=== PATIENT | female | born 1945 | race Caucasian/White ===

== ENCOUNTER 2021-06-11 15:44 | Inpatient (IN) | payer MEDICARE, OTHER ==
[~2021-06-11] VITALS: Ht 160 cm; Wt 59.0 kg
[2021-06-11] MEDS ORDERED: LORAZEPAM 2 MG/1 ML VIAL IM ONE ×2 (16:00→16:45)
[2021-06-11] MEDS ORDERED: ZIPRASIDONE MESYLATE 20 MG VIAL IM ONE ×2 (16:00→16:05)
--- NOTE | 2021-06-11 16:00 | NUR ---
MD at bedside for assessment, no sitter available at this time per housekeeping room attendant, Security called for assistance
[2021-06-11] MEDS ORDERED: LORAZEPAM 2 MG/1 ML VIAL ONE ×2 (16:05→17:00)
[2021-06-11] MEDS ORDERED: QUET100T PO (16:07)
[2021-06-11] MEDS ORDERED: MAGN400O6 PO (16:07)
[2021-06-11] MEDS ORDERED: QUET25TA PO (16:07)
[2021-06-11] MEDS ORDERED: DIVA125T2 PO (16:07)
[2021-06-11] MEDS ORDERED: ATOR10TA PO (16:07)
[2021-06-11] MEDS ORDERED: INSU100V39 SQ ×2 (16:07)
[2021-06-11] MEDS ORDERED: NA P133E RC (16:07)
[2021-06-11] MEDS ORDERED: INSU100V7 SQ (16:07)
[2021-06-11] MEDS ORDERED: ACET-2154 PO (16:07)
--- NOTE | 2021-06-11 17:00 | NUR ---
Patient taken to radiology twice and unsuccessful to get CT of the head, patient refused to lay on [facility]
--- NOTE | 2021-06-11 17:21 | NUR ---
Unable to get EKG at this time, patient continues to wander
[2021-06-11] MEDS ORDERED: diphenhydrAMINE 50 MG/1 ML VIAL IM ONE (17:45)
[2021-06-11] MEDS ORDERED: diphenhydrAMINE 50 MG/1 ML VIAL ONE (17:45)
[2021-06-11] MEDS ORDERED: HALOPERIDOL LACTATE 5 MG/1 ML VIAL IM ONE (17:45)
[2021-06-11] MEDS ORDERED: HALOPERIDOL LACTATE 5 MG/1 ML VIAL ONE (17:45)
[2021-06-11 18:36] LABS: HEMATOCRIT 33.9 % (31.2-41.9); MEAN CORPUSCULAR VOLUME 95.5 fL (75.5-95.3); PLATELET COUNT (AUTO) 282 K/uL (179-408)
[2021-06-11 18:40] LABS: CARBON DIOXIDE 26 mmol/L (21-32); CHLORIDE 101 mmol/L (98-107); CREATININE 0.7 mg/dL (0.6-1.3); GLUCOSE 283 mg/dL (74-106); POTASSIUM 3.6 mmol/L (3.5-5.1); UREA NITROGEN, BLOOD 16 mg/dL (7-18)
[2021-06-11 18:44] LABS: ETHANOL < 3 MG/DL (0-0)
[2021-06-11 18:46] LABS: ACETAMINOPHEN < 2.0 ug/mL (10-30); ALANINE AMINOTRANSFERASE 33 U/L (14-59); ALKALINE PHOSPHATASE 86 U/L (50-136); ASPARTATE AMINOTRANSFERASE 8 U/L (15-37); BILIRUBIN,TOTAL 0.2 mg/dL (0.2-1.0)
[2021-06-11] MEDS ORDERED: KETAMINE HCL 500 MG/10 ML INJ IV ONE (19:00)
--- NOTE | 2021-06-11 19:05 | NUR ---
RECEIVED REPORT FROM REGINALDO [facility]LAND. PT NOTED TO BE IN BED, VITALS STABLE.
[2021-06-11] MEDS ORDERED: KETAMINE HCL 500 MG/10 ML INJ ONE (19:19)
--- NOTE | 2021-06-11 19:31 | NUR ---
PT TAKEN DOWN FOR CT.
--- NOTE | 2021-06-11 19:43 | NUR ---
PT RETURNED FROM CT.
--- NOTE | 2021-06-11 19:58 | NUR ---
CALLED CRISIS TEAM, SPOKE WITH ANTIONETTE, "OK I'M ON MY WAY".
[2021-06-11 20:11] LABS: *BILIRUBIN,URIN NEGATIVE (NEGATIVE); *BLOOD, URINE NEGATIVE (NEGATIVE); *CLARITY,URINE CLEAR (CLEAR); *COLOR,URINE YELLOW (YELLOW); *KETONES,URINE NEGATIVE (NEGATIVE); LEUKOCYTE ESTERASE ,URINE NEGATIVE (NEGATIVE); NITRITE, URINE NEGATIVE (NEGATIVE); PH,URINE 7.5 (5.0-8.0); UGLUCOSE 2+ (NEGATIVE)
[2021-06-11 20:20] LABS: *AMPHETAMINE, URINE NEGATIVE (NEGATIVE); *CANNABINOID, URINE NEGATIVE (NEGATIVE); *COCCAINE, URINE NEGATIVE (NEGATIVE); *OPIATE, URINE NEGATIVE (NEGATIVE); *PHENCYCLIDINE SCREEN,URINE NEGATIVE (NEGATIVE)
--- NOTE | 2021-06-11 21:35 | NUR ---
GAVE REPORT TO ANDIE IN [facility].
--- NOTE | 2021-06-11 21:50 | NUR ---
Pt. admitted to MHU room 138 A , under care of Dr. Mercado and Ayala Hill. Dx: psychosis 5150 hold for GD and GTO. Belongs List completed
[2021-06-11] MEDS ORDERED: LORAZEPAM 0.5 MG TABLET PO PRN (22:00)
[2021-06-11] MEDS ORDERED: MAGNESIUM HYDROXIDE 30 ML LIQUID UDC PO PRN (22:00)
[2021-06-11] MEDS ORDERED: ACETAMINOPHEN 650 MG SUPP.RECT RC PRN (22:00)
[2021-06-11] MEDS ORDERED: MAG HYDROX/AL HYDROX/SIMETH 30 ML LIQUID UDC PO PRN (22:00)
[2021-06-11] MEDS: BLOOD SUGAR DIAGNOSTIC 1 EACH STRIP VI ONE (22:15)
[2021-06-12 01:47] VITALS: BP 136/73
[2021-06-12] MEDS: BLOOD SUGAR DIAGNOSTIC 1 EACH STRIP VI ONE (01:53)
[2021-06-12] MEDS ORDERED: MAGNESIUM HYDROXIDE 30 ML LIQUID UDC PO PRN (02:15)
[2021-06-12] MEDS ORDERED: DEXTROSE 50% 50 ML DISP.SYRIN IV PRN (02:15)
[2021-06-12] MEDS ORDERED: ACETAMINOPHEN 325 MG TABLET-SA PATIENTS-PAIN ONLY PO PRN (02:15)
[2021-06-12] MEDS: INSULIN REGULAR, HUMAN 300 UNITS/3 ML VIAL SQ PRN ×2 (02:16→16:43)
--- NOTE | 2021-06-12 05:26 | NUR ---
ADMISSION NOTE; Received at 2215, from the ER, on a 72 hour hold, for danger to self/ gravely disabled, a transfer from [facility]. According to the hold, she has been increasingly aggressive for the past 3 days, unable to be redirected, has been impulsive and unpredictable, attempting to kick and bite staff, when they attempted to administer insulin. Upon arrival, she was confused and disoriented. Unable to provide information, or sign documents. She is diabetic, and initially refused to have her blood sugar checked. she attempted to climb out of bed, and was restless and difficult to redirect. She was placed in the ninfa chair for safety, and situated at the nurses station, for closer monitoring. Eventually, she got tired, and was assisted back to bed. A blood sugar check was finally able to be performed at 0153, and it was 348 (it was 283 in the ER at 1820, when a blood chemistry was drawn). [facility] was paged, and orders were received. Sliding scale insulin was given, and she went back to sleep. she continues to sleep, but is easy to awaken. No signs of hypo/hyper glycemia is noted. AM blood sugar check will be performed later, per orders. No distress noted. Will continue to monitor closely.
[2021-06-12] MEDS: BLOOD SUGAR DIAGNOSTIC 1 EACH STRIP VI SCH ×3 (06:26→16:38)
--- NOTE | 2021-06-12 06:56 | NUR ---
slept 5 hours total. AM blood sugar is 134. continues to sleep.
[2021-06-12 07:36] VITALS: BP 113/75
[2021-06-12 07:51] LABS: CREATININE 0.7 mg/dL (0.6-1.3); POTASSIUM 3.5 mmol/L (3.5-5.1)
[2021-06-12] MEDS: INSULIN LISPRO 1000 UNITS/10 ML VIAL(HUMALOG) SQ SCH ×3 (08:43→16:44)
[2021-06-12] MEDS: INSULIN REGULAR, HUMAN 300 UNIT/3 ML VIAL SQ PRN ×3 (08:47→20:32)
--- NOTE | 2021-06-12 09:15 | NUR ---
GPS: PT RECEIVED ON CHLOÉ CHAIR FOR SAFETY. PT ALMOST FINISHED THE BREAKFAST. PT WENT BACK TO BED AND WAS GIVEN 10 UNITS HUMALOG AND 2 UNITS HUMALIN R SQ. PT TOLERATED WELL. NO AGITATION AT THIS TIME.
--- NOTE | 2021-06-12 10:30 | NUR ---
GPS: PT ANXIOUS WITH AGITATION, SEATED ON CHLOÉ CHAIR. PT STATED WILL GO TO A [employer] AND WILL BE LATE. PT TALKING TO HERSELF. GIVEN ATIVAN AND TOLERATED WELL. WILL MONITOR
[2021-06-12] MEDS: DIVALPROEX SPRINKLE 125 MG CAP.SPRINK PO SCH ×2 (12:22→16:40)
[2021-06-12] MEDS: QUETIAPINE FUMARATE 25 MG TABLET PO SCH ×2 (12:22→16:40)
[2021-06-12] MEDS: LORAZEPAM 1 MG TABLET PO PRN ×2 (13:18→20:27)
--- NOTE | 2021-06-12 15:44 | NUR ---
GPS: PT CHRISTINE MANE CALLED CHECKING ON PT. BOYFRIENFabián MENTIONED HE WILL CALL BACK ON MONDAY FOR UPDATE. HE KNEW WHAT HAPPENED TO THE PT WHY SHE WAS ADMITTED HERE.
[2021-06-12 16:06] VITALS: BP 111/62
[2021-06-12 20:03] VITALS: BP 112/72
[2021-06-12] MEDS: ATORVASTATIN 10 MG TABLET PO SCH (20:27)
[2021-06-12] MEDS: QUETIAPINE FUMARATE 100 MG TABLET PO SCH (20:28)
[2021-06-12] MEDS: INSULIN GLARGINE,HUM 300 UNITS/3 ML CARTRIDGE SQ SCH (20:31)
[2021-06-13] MEDS: BLOOD SUGAR DIAGNOSTIC 1 EACH STRIP VI SCH ×5 (00:38→20:18)
[2021-06-13 07:57] VITALS: BP 110/79
[2021-06-13] MEDS: DIVALPROEX SPRINKLE 125 MG CAP.SPRINK PO SCH ×3 (08:01→17:00)
[2021-06-13] MEDS: QUETIAPINE FUMARATE 25 MG TABLET PO SCH ×3 (08:01→17:00)
[2021-06-13] MEDS: LORAZEPAM 1 MG TABLET PO PRN ×2 (08:01→17:00)
[2021-06-13] MEDS: INSULIN LISPRO 1000 UNITS/10 ML VIAL(HUMALOG) SQ SCH ×3 (08:06→16:41)
[2021-06-13] MEDS: INSULIN REGULAR, HUMAN 300 UNIT/3 ML VIAL SQ PRN ×2 (08:13→16:42)
[2021-06-13 16:39] VITALS: BP 122/70
--- NOTE | 2021-06-13 16:42 | NUR ---
received patient in ninfa-chair ,compliant with all medication ,assisted with all ADLS.will continue close monitoring for safety.
[2021-06-13 20:04] VITALS: BP 122/63
[2021-06-13] MEDS: ATORVASTATIN 10 MG TABLET PO SCH (20:17)
[2021-06-13] MEDS: QUETIAPINE FUMARATE 100 MG TABLET PO SCH (20:17)
[2021-06-13] MEDS: INSULIN GLARGINE,HUM 300 UNITS/3 ML CARTRIDGE SQ SCH (20:20)
[2021-06-13] MEDS: ZOLPIDEM 5 MG TABLET PO PRN (21:53)
--- NOTE | 2021-06-13 22:29 | NUR ---
Received patient in the hallway sitting in a jeffery chair near the nursing station. she is noted A/O x 1, restless easily irritable and poor historian. patient needs assistance with ADLs, she is unable to performed complex tasks. she was taken to the bathroom and she was able to void. she is hard to redirect and she requires redirections and reality checks. she is compliant with medication regiment. V/S stable at this time. she was given PO fluids and snacks. she is reassured for her safety. safety and fall precaution are in place. will continue to monitor.
[2021-06-14] MEDS: LORAZEPAM 1 MG TABLET PO PRN ×2 (06:14→14:28)
[2021-06-14] MEDS: BLOOD SUGAR DIAGNOSTIC 1 EACH STRIP VI SCH ×4 (06:32→20:51)
--- NOTE | 2021-06-14 06:46 | NUR ---
patient slept for approx 5.30 hrs through the night. She was noted anxious and restless. Ativan 1mg PO PRN was given. she is now observed calm and cooperative.
[2021-06-14 07:40] VITALS: BP 131/77
[2021-06-14] MEDS: QUETIAPINE FUMARATE 25 MG TABLET PO SCH ×3 (08:26→16:33)
[2021-06-14] MEDS: DIVALPROEX SPRINKLE 125 MG CAP.SPRINK PO SCH ×3 (08:26→16:33)
[2021-06-14] MEDS: INSULIN REGULAR, HUMAN 300 UNIT/3 ML VIAL SQ PRN ×2 (08:34→12:32)
[2021-06-14] MEDS: INSULIN LISPRO 1000 UNITS/10 ML VIAL(HUMALOG) SQ SCH ×3 (08:36→16:30)
--- NOTE | 2021-06-14 13:08 | NUR ---
BERTRAM Initial Discharge Plan: Pt resides at [address] [address] ([phone]) and will be returning once ready for discharge. BERTRAM spoke with Sheryl at [facility]. BERTRAM will continue to work with patient and MD to ensure a safe and proper discharge plan.
--- NOTE | 2021-06-14 13:10 | NUR ---
Firearms Report: Clinical Trials Manager completed and submitted a [employer] firearms report for 5150 grave disability certifications. A copy of report has been placed in patient chart.
--- NOTE | 2021-06-14 13:11 | NUR ---
BERTRAM SNF Contact: Pt resides at [address] [address] ([phone]) and will be returning once ready for discharge. BERTRAM spoke with Sheryl at [facility].
[2021-06-14 15:46] VITALS: BP 134/82
--- NOTE | 2021-06-14 17:18 | NUR ---
Pt. is alert, oriented X 1 to person. Pt. affect is confused, forgetful, disorganized, very anxious. Pt. is given Ativan 1 mg at 14:28 for anxiety and agitation, semi effective. Pt. is compliant with medications. Reassurance given. Fall and safety precautions implemented.l
[2021-06-14 20:47] VITALS: BP 120/53
[2021-06-14] MEDS: ATORVASTATIN 10 MG TABLET PO SCH (20:51)
[2021-06-14] MEDS: QUETIAPINE FUMARATE 100 MG TABLET PO SCH (20:51)
[2021-06-14] MEDS: INSULIN REGULAR, HUMAN 300 UNITS/3 ML VIAL SQ PRN (20:55)
[2021-06-14] MEDS: INSULIN GLARGINE,HUM 300 UNITS/3 ML CARTRIDGE SQ SCH (21:02)
[2021-06-15] MEDS: LORAZEPAM 1 MG TABLET PO PRN ×2 (05:04→13:57)
[2021-06-15] MEDS: BLOOD SUGAR DIAGNOSTIC 1 EACH STRIP VI SCH ×5 (06:30→21:49)
[2021-06-15 07:55] VITALS: BP 113/83
[2021-06-15] MEDS: INSULIN LISPRO 1000 UNITS/10 ML VIAL(HUMALOG) SQ SCH ×3 (08:25→17:20)
[2021-06-15] MEDS: INSULIN REGULAR, HUMAN 300 UNIT/3 ML VIAL SQ PRN ×3 (08:28→17:22)
[2021-06-15] MEDS: DIVALPROEX SPRINKLE 125 MG CAP.SPRINK PO SCH ×3 (08:28→17:12)
[2021-06-15] MEDS: QUETIAPINE FUMARATE 25 MG TABLET PO SCH ×3 (08:28→17:12)
[2021-06-15 16:00] VITALS: BP 105/55
--- NOTE | 2021-06-15 17:45 | NUR ---
Pt. is alert, oriented X 1 - 2 to person. Pt. affect is anxious, restless, confused, disoriented, fixated on snacks and food. Ativan given at 13:57 for agitation and anxiety. Compliant with medications and care. Pt. ambulates with assistance, poor safety awareness, lower extremities weakness. Reality orientation provided. Fall and safety precautions implemented.
[2021-06-15 20:00] VITALS: BP 129/59
[2021-06-15] MEDS: ZOLPIDEM 5 MG TABLET PO PRN (20:28)
[2021-06-15] MEDS: QUETIAPINE FUMARATE 100 MG TABLET PO SCH (20:28)
[2021-06-15] MEDS: ATORVASTATIN 10 MG TABLET PO SCH (20:28)
[2021-06-15] MEDS: INSULIN REGULAR, HUMAN 300 UNITS/3 ML VIAL SQ PRN (21:51)
[2021-06-15] MEDS: INSULIN GLARGINE,HUM 300 UNITS/3 ML CARTRIDGE SQ SCH (21:53)
[2021-06-16] MEDS: BLOOD SUGAR DIAGNOSTIC 1 EACH STRIP VI SCH ×4 (06:18→20:52)
--- NOTE | 2021-06-16 06:48 | NUR ---
Patient is awake but disoriented. Unable to engage in conversation. Patient is impulsive and labile. Unable to contract for safety. VS are stable. Patient slept 6.30 hours and was up only to void during the night. Safety stratiges in place.
[2021-06-16 07:30] VITALS: BP 114/63
[2021-06-16] MEDS: DIVALPROEX SPRINKLE 125 MG CAP.SPRINK PO SCH ×3 (08:24→16:51)
[2021-06-16] MEDS: INSULIN LISPRO 1000 UNITS/10 ML VIAL(HUMALOG) SQ SCH ×3 (08:26→16:48)
[2021-06-16] MEDS: INSULIN REGULAR, HUMAN 300 UNIT/3 ML VIAL SQ PRN ×2 (08:27→12:12)
[2021-06-16] MEDS ORDERED: OLANZAPINE 10 MG VIAL IM ONE (08:30)
[2021-06-16] MEDS: QUETIAPINE FUMARATE 25 MG TABLET PO SCH ×3 (09:00→16:51)
[2021-06-16 16:00] VITALS: BP 118/53
[2021-06-16 20:00] VITALS: BP 139/70
[2021-06-16] MEDS: LORAZEPAM 1 MG TABLET PO PRN (20:46)
[2021-06-16] MEDS: ATORVASTATIN 10 MG TABLET PO SCH (20:46)
[2021-06-16] MEDS: QUETIAPINE FUMARATE 100 MG TABLET PO SCH (20:46)
[2021-06-16] MEDS: INSULIN GLARGINE,HUM 300 UNITS/3 ML CARTRIDGE SQ SCH (20:48)
[2021-06-17 07:30] VITALS: BP 108/63
[2021-06-17] MEDS: INSULIN REGULAR, HUMAN 300 UNIT/3 ML VIAL SQ PRN ×3 (07:58→16:59)
[2021-06-17] MEDS: INSULIN LISPRO 1000 UNITS/10 ML VIAL(HUMALOG) SQ SCH ×3 (07:59→16:58)
[2021-06-17] MEDS: BLOOD SUGAR DIAGNOSTIC 1 EACH STRIP VI SCH ×4 (08:00→21:26)
[2021-06-17] MEDS: QUETIAPINE FUMARATE 25 MG TABLET PO SCH ×3 (08:10→16:09)
[2021-06-17] MEDS: DIVALPROEX SPRINKLE 125 MG CAP.SPRINK PO SCH ×3 (08:10→16:09)
[2021-06-17] MEDS: LORAZEPAM 1 MG TABLET PO PRN ×2 (10:56→21:37)
--- NOTE | 2021-06-17 10:58 | NUR ---
Pt. is alert, oriented X 2 to name and person. Pt. is anxious, restless, confused, disoriented, fixated on snacks and food. Ativan 1 mg po given for agitation and anxiety. Compliant with medications and care. Pt. ambulates with assistance, poor safety awareness, lower extremities weakness. Reality orientation provided. Fall and safety precautions implemented.
--- NOTE | 2021-06-17 11:58 | NUR ---
patient is calm now. prn effective.
--- NOTE | 2021-06-17 16:40 | NUR ---
patient remain uncooperative with care.but compliant with meds. continue plan of care.
[2021-06-17 20:14] VITALS: BP 101/66
[2021-06-17] MEDS: ATORVASTATIN 10 MG TABLET PO SCH (21:23)
[2021-06-17] MEDS: QUETIAPINE FUMARATE 100 MG TABLET PO SCH (21:23)
[2021-06-17] MEDS: INSULIN GLARGINE,HUM 300 UNITS/3 ML CARTRIDGE SQ SCH (21:31)
[2021-06-17] MEDS: INSULIN REGULAR, HUMAN 300 UNITS/3 ML VIAL SQ PRN (21:34)
[2021-06-18 07:30] VITALS: BP 110/75
[2021-06-18] MEDS: BLOOD SUGAR DIAGNOSTIC 1 EACH STRIP VI SCH ×4 (07:59→21:17)
--- NOTE | 2021-06-18 07:59 | NUR ---
Admit Note: Patient is a 76 yr old Male admitted on a 5150 for Destructive behavior to self after attempting to overdose with ten pills of oxycodone. Patient arrived in [facility] with ambulance emt's and ER staff. On arrival patient was crying, appeared to have high levels of anxiety and requested to go to sleep. Body check performed, contraband removed and stored in patient -locker. Patient rights handbook provided. Plan of care initiated. Dr. Mosley notified, a.m. nurses to follow up with manual tester for medication reconciliation. Observation Q15 minutes times twenty-four hours for safety. Patient denied suicidal ideation or and intent.
[2021-06-18] MEDS: INSULIN LISPRO 1000 UNITS/10 ML VIAL(HUMALOG) SQ SCH ×3 (08:00→17:30)
[2021-06-18] MEDS: DIVALPROEX SPRINKLE 125 MG CAP.SPRINK PO SCH ×3 (09:57→17:26)
[2021-06-18] MEDS: LORAZEPAM 1 MG TABLET PO PRN ×2 (09:57→21:03)
[2021-06-18] MEDS: QUETIAPINE FUMARATE 25 MG TABLET PO SCH ×3 (09:58→17:26)
--- NOTE | 2021-06-18 13:33 | NUR ---
BERTRAM PC Hearing: Patient had 5250 probable cause hearing today and it was upheld for grave disability.
[2021-06-18 16:24] VITALS: BP 120/62
--- NOTE | 2021-06-18 18:38 | NUR ---
Patient remains uncomplaint with care, refused insulin x2 , refused blood sugar check x 1.
[2021-06-18 20:00] VITALS: BP 115/68
[2021-06-18] MEDS: QUETIAPINE FUMARATE 100 MG TABLET PO SCH (20:32)
[2021-06-18] MEDS: INSULIN GLARGINE,HUM 300 UNITS/3 ML CARTRIDGE SQ SCH (21:00)
[2021-06-18] MEDS: ATORVASTATIN 10 MG TABLET PO SCH (21:03)
[2021-06-18] MEDS: ZOLPIDEM 5 MG TABLET PO PRN (23:35)
--- NOTE | 2021-06-19 04:42 | NUR ---
Pt's HS blood glucose was initially 58; orange juice and sandwich provided--pt consumed 100%. BG rechecked after 30 mins and was at 117. Lantus 10U HS held.
[2021-06-19] MEDS: BLOOD SUGAR DIAGNOSTIC 1 EACH STRIP VI SCH ×4 (07:00→20:29)
[2021-06-19] MEDS: INSULIN REGULAR, HUMAN 300 UNIT/3 ML VIAL SQ PRN ×2 (08:09→11:53)
[2021-06-19 08:15] VITALS: BP 99/70
[2021-06-19] MEDS: INSULIN LISPRO 1000 UNITS/10 ML VIAL(HUMALOG) SQ SCH ×3 (08:17→17:27)
[2021-06-19] MEDS: DIVALPROEX SPRINKLE 125 MG CAP.SPRINK PO SCH ×3 (08:18→17:20)
[2021-06-19] MEDS: QUETIAPINE FUMARATE 25 MG TABLET PO SCH ×3 (08:18→17:20)
[2021-06-19 09:00] LABS: CREATININE 0.8 mg/dL (0.6-1.3); POTASSIUM 4.1 mmol/L (3.5-5.1)
--- NOTE | 2021-06-19 10:54 | NUR ---
Gps/Professor Of Voice- Adequate intake during breakfast, fed self ind. after set up .compliant with her routine am. meds. No hypo/hyperglycemia. Talking to herself, had been re directable . Safety reviewed, emphasized.
--- NOTE | 2021-06-19 12:55 | NUR ---
Gps/Flower Stripper- Hesitancy to take her routine pm meds. needed prompting and lots of encouragement, speech confused, incoherent. Routine pm meds, re- offered administered crushed with pudding
[2021-06-19 15:37] VITALS: BP 97/59
[2021-06-19] MEDS: QUETIAPINE FUMARATE 100 MG TABLET PO SCH (20:24)
[2021-06-19] MEDS: ATORVASTATIN 10 MG TABLET PO SCH (20:24)
[2021-06-19] MEDS: INSULIN REGULAR, HUMAN 300 UNITS/3 ML VIAL SQ PRN (20:30)
[2021-06-19] MEDS: INSULIN GLARGINE,HUM 300 UNITS/3 ML CARTRIDGE SQ SCH (20:32)
--- NOTE | 2021-06-20 04:32 | NUR ---
patient remain uncooperative with care.but compliant with meds. continue plan of care. confused and disoriented. assisted with adl's. unsteady gait. resting in ninfa chair near nursing station.
[2021-06-20] MEDS: BLOOD SUGAR DIAGNOSTIC 1 EACH STRIP VI SCH ×4 (06:32→20:05)
--- NOTE | 2021-06-20 06:38 | NUR ---
slept 4.30 hrs through the night.
[2021-06-20 07:30] VITALS: BP 97/60
[2021-06-20] MEDS: INSULIN REGULAR, HUMAN 300 UNIT/3 ML VIAL SQ PRN ×2 (07:48→16:23)
[2021-06-20] MEDS: INSULIN LISPRO 1000 UNITS/10 ML VIAL(HUMALOG) SQ SCH ×3 (07:53→16:32)
[2021-06-20] MEDS: QUETIAPINE FUMARATE 25 MG TABLET PO SCH ×3 (08:55→16:36)
[2021-06-20] MEDS: DIVALPROEX SPRINKLE 125 MG CAP.SPRINK PO SCH ×3 (08:55→16:35)
--- NOTE | 2021-06-20 11:00 | NUR ---
Gps/Compliance Associate- Patient very uncooperative during her care and shower, needing 2 staff to assist , trying to grab staff, attempting to bite staff
--- NOTE | 2021-06-20 11:57 | NUR ---
Gps/Consulting Sales Executive- Patient refusing to have her blood sugar check before lunch
[2021-06-20] MEDS: LORAZEPAM 1 MG TABLET PO PRN (14:49)
[2021-06-20 20:00] VITALS: BP 104/57
[2021-06-20] MEDS: ATORVASTATIN 10 MG TABLET PO SCH (20:05)
[2021-06-20] MEDS: QUETIAPINE FUMARATE 100 MG TABLET PO SCH (20:05)
[2021-06-20] MEDS: INSULIN GLARGINE,HUM 300 UNITS/3 ML CARTRIDGE SQ SCH (20:14)
[2021-06-20] MEDS: INSULIN REGULAR, HUMAN 300 UNITS/3 ML VIAL SQ PRN (20:21)
[2021-06-20] MEDS: ZOLPIDEM 5 MG TABLET PO PRN (21:37)
[2021-06-21] MEDS: BLOOD SUGAR DIAGNOSTIC 1 EACH STRIP VI SCH ×4 (06:15→20:22)
[2021-06-21] MEDS: LORAZEPAM 1 MG TABLET PO PRN ×2 (07:35→16:45)
[2021-06-21] MEDS: ACETAMINOPHEN 325 MG TABLET PO PRN ×2 (07:35→16:46)
[2021-06-21] MEDS: DIVALPROEX SPRINKLE 125 MG CAP.SPRINK PO SCH ×3 (08:13→17:26)
[2021-06-21] MEDS: QUETIAPINE FUMARATE 25 MG TABLET PO SCH ×3 (08:14→17:26)
[2021-06-21] MEDS: INSULIN REGULAR, HUMAN 300 UNIT/3 ML VIAL SQ PRN ×3 (08:18→16:58)
[2021-06-21] MEDS: INSULIN LISPRO 1000 UNITS/10 ML VIAL(HUMALOG) SQ SCH ×3 (08:22→16:56)
[2021-06-21 08:34] VITALS: BP 106/56
[2021-06-21 15:37] VITALS: BP 115/54
[2021-06-21 19:58] VITALS: BP 112/60
[2021-06-21] MEDS: ATORVASTATIN 10 MG TABLET PO SCH (20:17)
[2021-06-21] MEDS: QUETIAPINE FUMARATE 100 MG TABLET PO SCH (20:21)
[2021-06-21] MEDS: INSULIN GLARGINE,HUM 300 UNITS/3 ML CARTRIDGE SQ SCH (20:24)
[2021-06-21] MEDS ORDERED: DEXTROSE 50% 50 ML DISP.SYRIN IV PRN (23:15)
[2021-06-22] MEDS: BLOOD SUGAR DIAGNOSTIC 1 EACH STRIP VI SCH ×2 (06:43→17:06)
[2021-06-22 07:30] VITALS: BP 132/86
[2021-06-22] MEDS ORDERED: BLOOD SUGAR DIAGNOSTIC 1 EACH STRIP VI SCH (07:30)
[2021-06-22] MEDS: ACETAMINOPHEN 325 MG TABLET PO PRN ×2 (09:01→16:25)
[2021-06-22] MEDS: LORAZEPAM 1 MG TABLET PO PRN ×2 (09:01→16:25)
[2021-06-22] MEDS: INSULIN REGULAR, HUMAN 300 UNIT/3 ML VIAL SQ PRN ×2 (09:07→17:12)
[2021-06-22] MEDS: GLIMEPIRIDE 2 MG TABLET PO SCH ×2 (09:24→17:09)
[2021-06-22] MEDS: QUETIAPINE FUMARATE 25 MG TABLET PO SCH ×3 (09:24→17:07)
[2021-06-22] MEDS: DIVALPROEX SPRINKLE 125 MG CAP.SPRINK PO SCH ×3 (09:24→17:07)
[2021-06-22 15:03] VITALS: BP 150/78
[2021-06-22 20:02] VITALS: BP 122/76
[2021-06-22] MEDS: QUETIAPINE FUMARATE 100 MG TABLET PO SCH (20:11)
[2021-06-22] MEDS: ATORVASTATIN 10 MG TABLET PO SCH (20:11)
[2021-06-22] MEDS: ZOLPIDEM 5 MG TABLET PO PRN (21:13)
--- NOTE | 2021-06-23 04:19 | NUR ---
Received patient in the ninfa chair at start of the shift. Patient remains confused and is having visual hallucinations. Trying to grab things out of thin air and reaching for things on the ground that are not there. Assistance provided for the patient when taken to the bathroom. At those times , this patient will strike out at the staff providing care, but the combativeness is much less then last week when this quality analyst/technical writer had the patient. The patient is unable to express herself clearly but is able to eat on her own and is continent most of the time. Safety stratiges are in place, and frequent rounding done. Patient has been in bed sleeping for a good portion of the shift so far. No acute distress noted. Continuing to monitor.
[2021-06-23] MEDS: BLOOD SUGAR DIAGNOSTIC 1 EACH STRIP VI SCH ×2 (06:27→16:37)
[2021-06-23 07:30] VITALS: BP 126/68
[2021-06-23] MEDS: DIVALPROEX SPRINKLE 125 MG CAP.SPRINK PO SCH ×3 (08:03→17:00)
[2021-06-23] MEDS: QUETIAPINE FUMARATE 25 MG TABLET PO SCH ×3 (08:04→17:00)
[2021-06-23] MEDS: GLIMEPIRIDE 2 MG TABLET PO SCH ×2 (08:04→17:00)
[2021-06-23 08:05] LABS: HEMATOCRIT 36.7 % (31.2-41.9); MEAN CORPUSCULAR HEMOGLOBIN 33.4 uug (24.7-32.8); MEAN CORPUSCULAR VOLUME 97.9 fL (75.5-95.3); PLATELET COUNT (AUTO) 267 K/uL (179-408)
[2021-06-23 08:14] LABS: BILIRUBIN,TOTAL 0.2 mg/dL (0.2-1.0); CREATININE 0.7 mg/dL (0.6-1.3); PHOSPHOROUS 3.3 mg/dL (2.5-4.9); POTASSIUM 3.9 mmol/L (3.5-5.1); TOTAL PROTEIN, SERUM 7.4 g/dL (6.4-8.2)
[2021-06-23] MEDS: LORAZEPAM 1 MG TABLET PO PRN ×2 (08:48→20:01)
--- NOTE | 2021-06-23 09:24 | NUR ---
GPS: PER PSYCHIATRIST, PT WILL BE DISCHARGE TOMORROW AT THE SAME FACILITY [facility]. COVID TEST ORDER TODAY.
[2021-06-23 16:00] VITALS: BP 122/69
[2021-06-23] MEDS: INSULIN REGULAR, HUMAN 300 UNIT/3 ML VIAL SQ PRN (17:08)
--- NOTE | 2021-06-23 18:08 | NUR ---
GPS: PT ALERT AND VERBALLY RESPONSIVE, COOPERATIVE WITH CARE AND MEDICATION COMPLIANT. DENIES ANY PAIN OR DISCOMFORT. PT SAT ON CHLOÉ- CHAIR FOR SAFETY. ATE GOOD TODAY. PT ASSISTED TO BATHROOM.
[2021-06-23 19:51] VITALS: BP 120/69
[2021-06-23] MEDS: QUETIAPINE FUMARATE 100 MG TABLET PO SCH (20:37)
[2021-06-23] MEDS: ATORVASTATIN 10 MG TABLET PO SCH (20:37)
--- NOTE | 2021-06-23 21:12 | NUR ---
received patient in the hallway sitting in a jeffery chair close to the nursing station. she was noted awake a/o x 1 noted restless, anxious and hyperverbal. she was given Ativan 1mg PO prn for anxiety. V/S are stable. she was given PO fluids and snacks. she was helped to used the bathroom. she is reassured for her safety. Safety and fall precaution are in place. will continue to monitor
[2021-06-23] MEDS: ZOLPIDEM 5 MG TABLET PO PRN (23:02)
[2021-06-24] MEDS: LORAZEPAM 1 MG TABLET PO PRN (05:00)
--- NOTE | 2021-06-24 06:42 | NUR ---
Patient slept for approx 4.40 hrs through the night. Ativan 1mg was given at 5am for anxiety and agitation. she is now noted calm. will continue to monitor.
[2021-06-24] MEDS: BLOOD SUGAR DIAGNOSTIC 1 EACH STRIP VI SCH (06:59)
[2021-06-24 07:30] VITALS: BP 107/63
--- NOTE | 2021-06-24 08:14 | NUR ---
Discharge Note: Patient will be discharged back to [facility] [address] [place] [address] ([phone]) via ambulance at 1pm. Spoke with Pinky mental health coordinator at the facility who states they are ready to accept the patient today. Patient will follow-up at the facility with Dr. Pascual Cage/Vault Supervisor and Dr. Garcia Psychiatrist. Patient is alert and oriented times 2, denies suicidal or homicidal ideation, and is aware and agreeable with discharge plans. Patient presents with euthymic mood and congruent affect. Patient is unable to plan for self-care at this time, however, is willing to accept care provided at the facility.
[2021-06-24] MEDS: QUETIAPINE FUMARATE 25 MG TABLET PO SCH ×2 (08:41→12:09)
[2021-06-24] MEDS: DIVALPROEX SPRINKLE 125 MG CAP.SPRINK PO SCH ×2 (08:41→12:09)
[2021-06-24] MEDS: GLIMEPIRIDE 2 MG TABLET PO SCH (09:04)
[2021-06-24] MEDS: INSULIN REGULAR, HUMAN 300 UNIT/3 ML VIAL SQ PRN (09:11)
--- NOTE | 2021-06-24 09:24 | NUR ---
GPS: PT ON GERICHAIR ALERT AND VERBALLY RESPONSIVE AND ORIENTED X2. DENIES PAIN OR DISCOMFORT. PT COOPERATIVE WITH CARE AND COMPLIANT WITH MEDICATIONS. CALM AND RELAX. ASSISTED TO THE BATHROOM AFTER BREAKFAST. PT FINISHED THE BREAKFAST 100%. PT FOR DISCHATGE TODAY AT [facility] AT 1 PM VIA AMBULANCE. PT DENIES SUICIDAL/ HOMICIDAL IDEATION. NO AGITATION NOTED AT THIS TIME. PT PRESENTS WITH CONGRUENT AFFECT.
--- NOTE | 2021-06-24 12:25 | NUR ---
GPS: SPOKE WITH DIGNA, THE ADMITTING NURSE AT [facility], GAVE A REPORT. FACILITY IS EXPECTING THE PT. PT HAD LUNCH AND MEDICATION FOR THIS TIME WAS GIVEN TO PT. COOPERATIVE WITH CARE. EXPECTING AMBULANCE AT 1PM.
--- NOTE | 2021-06-24 13:42 | NUR ---
GPS: PT DISCHARGED [facility]. BELONGINGS GIVEN AND ALL PAPERS SIGNED. PT COOPERATIVE WITH AMBULANCE CREW.
== END 2021-06-24 13:30 | DRG 885 ==
LOC: ER 15:44 → GPS 21:40
PROVIDERS: ADMIT Psychiatry & Neurology Psychiatry; ATTEND Student in an Organized Health Care Education/Training Program
DX: F29 Unspecified psychosis not due to a substance or known physiological condition (principal); E11.65 Type 2 diabetes mellitus with hyperglycemia; F03.91 Unspecified dementia, unspecified severity, with behavioral disturbance; Z79.4 Long term (current) use of insulin; E78.5 Hyperlipidemia, unspecified; D75.89 Other specified diseases of blood and blood-forming organs; F25.9 Schizoaffective disorder, unspecified; R94.31 Abnormal electrocardiogram [ECG] [EKG]; Z20.822 Contact with and (suspected) exposure to COVID-19
CPT/HCPCS: 36415; 70450; 80164; 83735; 84100; 84443; 85025; 93005; 97161; A4663; C1758; G0480; J1200; J1630; J1815; J2060; J2358; J3486; J3490

== ENCOUNTER 2021-12-06 18:50 | Inpatient (IN) | payer MEDICARE, OTHER ==
[~2021-12-06] VITALS: Ht 160 cm; Wt 67.1 kg
[~2021-12-06 18:50] MED LIST: ACET-2154 PO; ATOR10TA PO; INSU100V39 SQ; INSU100V7 SQ; MAGN400O6 PO; NA P133E RC
--- NOTE | 2021-12-06 18:58 | NUR ---
Dr Doss at bedside, MSE in progress.
[2021-12-06] MEDS ORDERED: ZIPRASIDONE MESYLATE 20 MG VIAL IM ONE ×2 (19:35→23:30)
[2021-12-06 19:58] LABS: MEAN CORPUSCULAR HEMOGLOBIN 33.1 uug (24.7-32.8); MEAN CORPUSCULAR VOLUME 94.3 fL (75.5-95.3); PLATELET COUNT (AUTO) 254 K/uL (179-408)
[2021-12-06] MEDS ORDERED: KETAMINE HCL 500 MG/10 ML INJ IV ONE ×2 (20:00→21:15)
[2021-12-06 20:03] LABS: CARBON DIOXIDE 26 mmol/L (21-32); CHLORIDE 101 mmol/L (98-107); CREATININE 0.8 mg/dL (0.6-1.3); GLUCOSE 148 mg/dL (74-106); POTASSIUM 3.9 mmol/L (3.5-5.1); UREA NITROGEN, BLOOD 21 mg/dL (7-18)
[2021-12-06] MEDS ORDERED: KETAMINE HCL 500 MG/10 ML INJ ONE ×2 (20:09→21:24)
[2021-12-06 20:10] LABS: ETHANOL < 3 MG/DL (0-0)
[2021-12-06 20:16] LABS: ALANINE AMINOTRANSFERASE 28 U/L (14-59); ALKALINE PHOSPHATASE 124 U/L (50-136); ASPARTATE AMINOTRANSFERASE 11 U/L (15-37); BILIRUBIN,DIRECT < 0.1 mg/dL (0.0-0.2); BILIRUBIN,TOTAL 0.2 mg/dL (0.2-1.0); TOTAL PROTEIN, SERUM 7.2 g/dL (6.4-8.2)
[2021-12-06 20:20] LABS: ACETAMINOPHEN < 2.0 ug/mL (10-30)
--- NOTE | 2021-12-06 21:05 | NUR ---
pt is attempting to get out of bed and swatting my hand away when I try to take her BP and pulse ox.
[2021-12-06] MEDS ORDERED: LORAZEPAM 2 MG/1 ML VIAL IV ONE (21:15)
[2021-12-06] MEDS ORDERED: LORAZEPAM 2 MG/1 ML VIAL ONE (21:25)
[2021-12-06 22:15] LABS: *BILIRUBIN,URIN NEGATIVE (NEGATIVE); *CLARITY,URINE CLOUDY (CLEAR); *COLOR,URINE YELLOW (YELLOW); *KETONES,URINE NEGATIVE (NEGATIVE); *UROBILINOGEN,URINE 0.2 E.U./dl (NORMAL); LEUKOCYTE ESTERASE ,URINE 2+ (NEGATIVE); NITRITE, URINE NEGATIVE (NEGATIVE); PH,URINE 5.5 (5.0-8.0); UGLUCOSE NEGATIVE (NEGATIVE)
[2021-12-06 22:21] LABS: *BLOOD, URINE TRACE (NEGATIVE)
[2021-12-06 22:24] LABS: BACTERIA,URINE MANY /HPF (NONE SEEN); SQUAMOUS EPITHELIAL CELL,UR FEW /HPF (NONE SEEN); WBC,URINE 80-100 /HPF (0-3)
[2021-12-06 22:27] LABS: *AMPHETAMINE, URINE NEGATIVE (NEGATIVE); *CANNABINOID, URINE NEGATIVE (NEGATIVE); *COCCAINE, URINE NEGATIVE (NEGATIVE); *OPIATE, URINE NEGATIVE (NEGATIVE); *PHENCYCLIDINE SCREEN,URINE NEGATIVE (NEGATIVE)
--- NOTE | 2021-12-06 23:43 | NUR ---
Reanna plastics nurse is here for psych evaluation
[2021-12-07] MEDS ORDERED: KETAMINE HCL 500 MG/10 ML INJ ONE (00:11)
[2021-12-07] MEDS ORDERED: LORAZEPAM 2 MG/1 ML VIAL ONE (00:11)
[2021-12-07] MEDS ORDERED: LORAZEPAM 2 MG/1 ML VIAL IV ONE (00:15)
[2021-12-07] MEDS ORDERED: KETAMINE HCL 500 MG/10 ML INJ IV ONE ×2 (00:15→02:00)
[2021-12-07] MEDS ORDERED: CEFTRIAXONE 1 G VIAL ONE (00:56)
[2021-12-07] MEDS ORDERED: CEFTRIAXONE 1 G in IV DEXTROSE 5% 50 ML IV ONE (01:00)
[2021-12-07] MEDS ORDERED: DIVA250T PO (01:29)
[2021-12-07] MEDS ORDERED: INSU100C SUBCUT (01:29)
[2021-12-07] MEDS ORDERED: QUET100T PO (01:29)
[2021-12-07] MEDS ORDERED: INSU100V7 SQ (01:29)
[2021-12-07] MEDS ORDERED: MAG355OR18 PO (01:29)
[2021-12-07] MEDS ORDERED: GLIM1TAB18 PO (01:29)
[2021-12-07] MEDS ORDERED: QUET50TA PO (01:29)
[2021-12-07] MEDS ORDERED: MAGN400O6 PO (01:29)
[2021-12-07] MEDS ORDERED: GLUC1KIT IJ (01:29)
[2021-12-07] MEDS ORDERED: ACET-2154 PO (01:29)
--- NOTE | 2021-12-07 01:34 | NUR ---
report given to burt [facility].
--- NOTE | 2021-12-07 02:18 | NUR ---
pt taken to U room 139 via [facility] with all her belongings.
[2021-12-07 02:28] VITALS: BP 100/45
[2021-12-07] MEDS ORDERED: MAGNESIUM HYDROXIDE 30 ML LIQUID UDC PO PRN ×2 (03:00→11:30)
[2021-12-07] MEDS ORDERED: BLOOD SUGAR DIAGNOSTIC 1 EACH STRIP VI ONE (03:00)
[2021-12-07] MEDS ORDERED: MAG HYDROX/AL HYDROX/SIMETH 30 ML LIQUID UDC PO PRN (03:00)
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
[2021-12-07 07:30] VITALS: BP 160/93
[2021-12-07 07:42] LABS: BILIRUBIN,TOTAL 0.2 mg/dL (0.2-1.0); CREATININE 0.7 mg/dL (0.6-1.3); POTASSIUM 4.1 mmol/L (3.5-5.1); TOTAL PROTEIN, SERUM 7.2 g/dL (6.4-8.2)
[2021-12-07] MEDS: LORAZEPAM 0.5 MG TABLET PO PRN (08:55)
[2021-12-07] MEDS: ACETAMINOPHEN 325 MG TABLET PO PRN ×2 (08:55→16:12)
[2021-12-07] MEDS ORDERED: hydrALAZINE HCL 25 MG TABLET PO PRN (11:30)
[2021-12-07] MEDS: BLOOD SUGAR DIAGNOSTIC 1 EACH STRIP VI SCH ×3 (11:30→21:41)
[2021-12-07] MEDS ORDERED: ACETAMINOPHEN 325 MG TABLET-SA PATIENTS-PAIN ONLY PO PRN (11:30)
[2021-12-07] MEDS ORDERED: DEXTROSE 50% 50 ML DISP.SYRIN IV PRN (11:30)
[2021-12-07] MEDS: INSULIN GLARGINE,HUM 300 UNITS/3 ML CARTRIDGE SQ SCH ×2 (12:00→21:42)
[2021-12-07] MEDS: NITROFURANTOIN/NITROFURAN MAC 100 MG CAPSULE PO SCH ×2 (12:20→21:14)
[2021-12-07] MEDS: DIVALPROEX SPRINKLE 125 MG CAP.SPRINK PO SCH ×2 (12:27→16:12)
--- NOTE | 2021-12-07 12:53 | NUR ---
GPS: Nursing Notes: Destructive Behavior to Others: Patient is awake and responding to her name, impaired judgment, resistant with nursing care, loud and pressured speech at times, overly disruptive by shouting, refusing her medications, needs a lot prompting to participate in therapeutic groups, episode of striking out when assisting her with diaper change, continue to monitor for safety, unable to formulate a viable plan for self care, continue with treatment plan.
[2021-12-07 15:50] VITALS: BP 146/90
[2021-12-07] MEDS: risperiDONE 0.5 MG TABLET PO SCH (16:12)
[2021-12-07 20:07] VITALS: BP 115/67
[2021-12-07] MEDS: ATORVASTATIN 10 MG TABLET PO SCH (21:14)
[2021-12-08] MEDS: BLOOD SUGAR DIAGNOSTIC 1 EACH STRIP VI SCH ×4 (06:46→21:25)
[2021-12-08 07:30] VITALS: BP 136/62
[2021-12-08] MEDS: risperiDONE 0.5 MG TABLET PO SCH (09:14)
[2021-12-08] MEDS: DIVALPROEX SPRINKLE 125 MG CAP.SPRINK PO SCH ×3 (09:14→17:07)
[2021-12-08] MEDS: NITROFURANTOIN/NITROFURAN MAC 100 MG CAPSULE PO SCH ×2 (09:15→21:26)
[2021-12-08] MEDS: INSULIN GLARGINE,HUM 300 UNITS/3 ML CARTRIDGE SQ SCH ×2 (09:20→21:29)
--- NOTE | 2021-12-08 11:38 | NUR ---
BERTRAM Initial Discharge Note: Pt. was admitted to [facility] on a 51/50 hold as a gravely disabled adult. Pt. was brought from [address] [address] ([phone]). BERTRAM will contact SNF for pt.'s return upon discharge. BERTRAM left a voicemail for pt's person of contact, Mina ([phone]) for a callback regarding a safe discharge plan. BERTRAM will continue to work with pt. family and MD to facilitate a safe and proper discharge plan.
--- NOTE | 2021-12-08 11:39 | NUR ---
BERTRAM Admit Source: Pt. was admitted to [facility] on a 5150 hold as a gravely disabled adult. Pt. was brought from [address] [address] ([phone]). BERTRAM will contact SNF for pt.'s return upon discharge. BERTRAM left a voicemail for pt's person of contact, Mina ([phone]) for a callback regarding a safe discharge plan. BERTRAM will continue to work with pt. family and MD to facilitate a safe and proper discharge plan.
[2021-12-08] MEDS: INSULIN REGULAR, HUMAN 300 UNIT/3 ML VIAL SQ PRN ×2 (13:37→17:48)
--- NOTE | 2021-12-08 15:18 | NUR ---
Received patient awake in her room. A/O X 1 to person. Pt. is confused, disoriented, disorganized, anxious and restless at times. Pt. ambulates with assistance. No facial grimaces, frowning indicating pain. Continent with few incontinent episodes. Blood glucose is 214 before lunch 6 units of regular insulin given per sliding scale. Reassurance given. Fall and safety precautions implemented.
--- NOTE | 2021-12-08 16:12 | NUR ---
BERTRAM Discharge Update: BERTRAM contacted Sheryl from [facility] [address] [facility] [place] [address] ([phone]) who confirmed pt's return to their facility upon discharge. BERTRAM also contacted pt's contact center professional, Mina ([phone]) who is aware of pt's admission to [facility] and agreeable with the pt's discharge plan.
[2021-12-08] MEDS: LORAZEPAM 0.5 MG TABLET PO PRN ×2 (16:23→23:33)
[2021-12-08] MEDS ORDERED: risperiDONE 0.5 MG TABLET PO SCH (17:00)
[2021-12-08] MEDS: risperiDONE 1 MG TABLET PO SCH (17:07)
--- NOTE | 2021-12-08 18:32 | NUR ---
Patient blood glucose is 227, 6 units of regular insulin given per sliding scale.
[2021-12-08 20:11] VITALS: BP 133/70
[2021-12-08] MEDS: TEMAZEPAM 7.5 MG CAPSULE PO PRN (21:26)
[2021-12-08] MEDS: ATORVASTATIN 10 MG TABLET PO SCH (21:26)
[2021-12-08] MEDS: INSULIN REGULAR, HUMAN 300 UNITS/3 ML VIAL SQ PRN (21:35)
--- NOTE | 2021-12-09 04:56 | NUR ---
Received up in ninfa chair, behavior directable, compliant with medications. Refused to go to bed, so she slept much of the night in the ninfa chair. Assisted to bed at 0400. As of now, she continues to sleep. No distress noted.
[2021-12-09] MEDS: BLOOD SUGAR DIAGNOSTIC 1 EACH STRIP VI SCH ×4 (06:39→21:14)
[2021-12-09 08:00] VITALS: BP 114/45
[2021-12-09] MEDS: DIVALPROEX SPRINKLE 125 MG CAP.SPRINK PO SCH ×3 (08:38→17:27)
[2021-12-09] MEDS: CEphaleXIN 500 MG CAPSULE PO SCH ×3 (08:38→21:25)
[2021-12-09] MEDS: risperiDONE 1 MG TABLET PO SCH ×2 (08:38→17:27)
[2021-12-09] MEDS: INSULIN GLARGINE,HUM 300 UNITS/3 ML CARTRIDGE SQ SCH ×2 (08:59→21:16)
[2021-12-09] MEDS: INSULIN REGULAR, HUMAN 300 UNIT/3 ML VIAL SQ PRN ×4 (09:02→21:17)
[2021-12-09] MEDS: LORAZEPAM 0.5 MG TABLET PO PRN ×2 (13:39→18:11)
--- NOTE | 2021-12-09 15:00 | NUR ---
GPS: PT ON CHLOÉ-CHAIR FOR SAFETY. PT SEEMS RESTLESS AND ATTENTION SEEKER. PT TALKING TO SELF. TALKING ABOUT ONE SUBJECT TO ANOTHER. REORIENTED PT AND REDIRECTED. PT GOT ANXIOUS AND WAS GIVEN ATIVAN AND TOLERATED WELL. PT WAS COOPERATIVE WITH CARE. SOMEWHAT PARANOID AND GUARDED.
[2021-12-09 16:00] VITALS: BP 128/67
[2021-12-09] MEDS: ATORVASTATIN 10 MG TABLET PO SCH (20:53)
[2021-12-09] MEDS: TEMAZEPAM 7.5 MG CAPSULE PO PRN (20:53)
[2021-12-10] MEDS: CEphaleXIN 500 MG CAPSULE PO SCH ×3 (06:16→21:20)
[2021-12-10 07:30] VITALS: BP 104/67
[2021-12-10] MEDS: BLOOD SUGAR DIAGNOSTIC 1 EACH STRIP VI SCH ×4 (07:57→20:39)
[2021-12-10] MEDS: INSULIN GLARGINE,HUM 300 UNITS/3 ML CARTRIDGE SQ SCH ×2 (08:00→20:43)
[2021-12-10] MEDS: INSULIN REGULAR, HUMAN 300 UNIT/3 ML VIAL SQ PRN ×2 (08:02→12:20)
[2021-12-10] MEDS: risperiDONE 1 MG TABLET PO SCH ×2 (08:03→17:14)
[2021-12-10] MEDS: DIVALPROEX SPRINKLE 125 MG CAP.SPRINK PO SCH ×3 (08:03→17:19)
[2021-12-10] MEDS: LORAZEPAM 0.5 MG TABLET PO PRN ×2 (10:52→18:37)
--- NOTE | 2021-12-10 11:33 | NUR ---
Received pt sitting in her ninfa chair in [address] yelling "help me, help me " and banging on the tray of the ninfa chair, pt is very confused, disruptive and combative at times she is difficult to redirect, pt was able to feed herself breakfast this morning, pt needs assist with ADL's she was given a shower, pt is in group activity watching tv, Blood sugar check done @ 11:30 result 228 mg/dl pt will receive 4 units of regular insulin sub q before she eats lunch.
--- NOTE | 2021-12-10 15:35 | NUR ---
COURT HEARING: Pt's probable cause hearing was upheld for gravely disabled adult.
[2021-12-10 15:39] VITALS: BP 118/64
[2021-12-10] MEDS: GLUCERNA SHAKE VANILLA 237 ML CAN PO SCH (17:14)
[2021-12-10] MEDS: INSULIN REGULAR, HUMAN 300 UNITS/3 ML VIAL SQ PRN (17:58)
[2021-12-10 20:10] VITALS: BP 109/55
[2021-12-10] MEDS: ATORVASTATIN 10 MG TABLET PO SCH (20:31)
[2021-12-10] MEDS: TEMAZEPAM 7.5 MG CAPSULE PO PRN (22:15)
[2021-12-11] MEDS: CEphaleXIN 500 MG CAPSULE PO SCH ×3 (05:41→21:16)
[2021-12-11] MEDS: BLOOD SUGAR DIAGNOSTIC 1 EACH STRIP VI SCH ×4 (05:49→20:48)
--- NOTE | 2021-12-11 06:07 | NUR ---
GPS: Remain cooperative with meds and care. assisted with adl'[s. slept 3.30 hrs through the night.
[2021-12-11] MEDS: DIVALPROEX SPRINKLE 125 MG CAP.SPRINK PO SCH ×3 (08:58→16:47)
[2021-12-11] MEDS: GLUCERNA SHAKE VANILLA 237 ML CAN PO SCH ×2 (08:58→16:48)
[2021-12-11] MEDS: risperiDONE 1 MG TABLET PO SCH ×2 (08:58→16:47)
[2021-12-11] MEDS: INSULIN GLARGINE,HUM 300 UNITS/3 ML CARTRIDGE SQ SCH ×2 (09:03→20:54)
[2021-12-11] MEDS: INSULIN REGULAR, HUMAN 300 UNIT/3 ML VIAL SQ PRN ×3 (09:04→17:02)
[2021-12-11 09:17] VITALS: BP 111/54
[2021-12-11] MEDS: LORAZEPAM 0.5 MG TABLET PO PRN ×2 (12:05→20:17)
[2021-12-11 16:02] VITALS: BP 115/61
--- NOTE | 2021-12-11 18:11 | NUR ---
received patient in the hallway sitting in the gerichair, patient is confused and flight of ideas noted when having conversation. Patient compliant with medications. No apparent distress noted. Patient ambulatory and wanders around the unit, safety strategies left in place. Patient needs redirection to perform self care. Remind patient on unit rules as she tends to go in and out of other patients room. Ativan given for anxiety with effectiveness as patient is calmer and redirectable. Patient compliant with diet. BS is within acceptable parameter. All needs met and attended during shift. patient kept safe.
[2021-12-11 20:00] VITALS: BP 118/63
--- NOTE | 2021-12-11 20:31 | NUR ---
patient is very agitated. screaming loud. ativan 0.5 mg po given.
[2021-12-11] MEDS: INSULIN REGULAR, HUMAN 300 UNITS/3 ML VIAL SQ PRN (20:52)
[2021-12-11] MEDS: TRAZODONE 50 MG TABLET PO SCH (21:12)
[2021-12-11] MEDS: ATORVASTATIN 10 MG TABLET PO SCH (21:12)
--- NOTE | 2021-12-11 21:31 | NUR ---
GPS: PATIENT IS CALM NOW. PRN FOR ANXIETY EFFRECTIVE.
--- NOTE | 2021-12-12 05:33 | NUR ---
GPS: REMAIN CALM AND COOPERATIVE WITH MEDS AND CARE. NO AGITATION NOTED AT THIS TIME. ASSISTED WITH ADL'S. CONTINUE PLAN OF CARE.
[2021-12-12] MEDS: CEphaleXIN 500 MG CAPSULE PO SCH ×3 (05:43→21:17)
[2021-12-12] MEDS: BLOOD SUGAR DIAGNOSTIC 1 EACH STRIP VI SCH ×4 (06:31→20:19)
--- NOTE | 2021-12-12 06:34 | NUR ---
slept 5.30 hrs through the night.
[2021-12-12 07:30] VITALS: BP 136/69
[2021-12-12] MEDS: LORAZEPAM 0.5 MG TABLET PO PRN ×3 (08:18→23:26)
[2021-12-12] MEDS: risperiDONE 1 MG TABLET PO SCH ×2 (08:18→16:05)
[2021-12-12] MEDS: DIVALPROEX SPRINKLE 125 MG CAP.SPRINK PO SCH ×3 (08:18→16:05)
[2021-12-12] MEDS: GLUCERNA SHAKE VANILLA 237 ML CAN PO SCH ×2 (08:19→16:09)
[2021-12-12] MEDS: INSULIN GLARGINE,HUM 300 UNITS/3 ML CARTRIDGE SQ SCH ×2 (08:22→20:26)
[2021-12-12] MEDS: INSULIN REGULAR, HUMAN 300 UNIT/3 ML VIAL SQ PRN ×2 (08:28→12:19)
--- NOTE | 2021-12-12 14:11 | NUR ---
patient is confused and disoriented, wandering in the unit get in to each room unable to follow direction . milk pickup driver trashes from trash can ,prn medication as ordered, patient continue with poor insight and poor judgement .assisted patient in ninfa-chair will continue close monitoring.
[2021-12-12 15:12] VITALS: BP 127/91
[2021-12-12 20:00] VITALS: BP 115/61
[2021-12-12] MEDS: INSULIN REGULAR, HUMAN 300 UNITS/3 ML VIAL SQ PRN (20:30)
[2021-12-12] MEDS: TRAZODONE 50 MG TABLET PO SCH (20:34)
[2021-12-12] MEDS: ATORVASTATIN 10 MG TABLET PO SCH (20:34)
[2021-12-12] MEDS: TEMAZEPAM 7.5 MG CAPSULE PO PRN (22:18)
[2021-12-13] MEDS: BLOOD SUGAR DIAGNOSTIC 1 EACH STRIP VI SCH ×5 (06:05→21:31)
--- NOTE | 2021-12-13 06:06 | NUR ---
Received, up in ninfa chair, confused, but compliant with care. PRN Restoril and Ativan were given at bedtime, and she slept well 5 hours. She is now awake,and in the ninfa chair, dozing on and off. No distress, noted.
[2021-12-13] MEDS: CEphaleXIN 500 MG CAPSULE PO SCH ×3 (06:47→21:33)
[2021-12-13 07:30] VITALS: BP 148/86
[2021-12-13] MEDS: risperiDONE 1 MG TABLET PO SCH ×2 (08:59→17:57)
[2021-12-13] MEDS: DIVALPROEX SPRINKLE 125 MG CAP.SPRINK PO SCH ×3 (09:00→17:57)
[2021-12-13] MEDS: GLUCERNA SHAKE VANILLA 237 ML CAN PO SCH ×2 (09:01→17:57)
[2021-12-13] MEDS: INSULIN GLARGINE,HUM 300 UNITS/3 ML CARTRIDGE SQ SCH ×2 (09:04→21:36)
--- NOTE | 2021-12-13 14:58 | NUR ---
Receive patient sleeping in her room. A/O X 1 to person. Pt. is confused, forgetful, disoriented, intrusive, pacing in the hallway and entering in the rooms. Compliant with medications. Refused accucheck at lunch. Pt. is trying to get food and beverages from other trays. Continent of bladder and bowel. Reality orientation provided. Fall and safety precautions implemented.
[2021-12-13 15:11] VITALS: BP 104/66
[2021-12-13] MEDS: INSULIN REGULAR, HUMAN 300 UNIT/3 ML VIAL SQ PRN (18:07)
[2021-12-13 20:09] VITALS: BP 136/66
[2021-12-13] MEDS: ATORVASTATIN 10 MG TABLET PO SCH (20:17)
[2021-12-13] MEDS: LORAZEPAM 0.5 MG TABLET PO PRN (20:17)
[2021-12-13] MEDS: TRAZODONE 50 MG TABLET PO SCH (20:20)
[2021-12-13] MEDS: TEMAZEPAM 7.5 MG CAPSULE PO PRN (21:33)
[2021-12-14] MEDS: CEphaleXIN 500 MG CAPSULE PO SCH (06:48)
[2021-12-14] MEDS: BLOOD SUGAR DIAGNOSTIC 1 EACH STRIP VI SCH ×4 (06:48→21:31)
[2021-12-14 07:30] VITALS: BP 147/84
[2021-12-14] MEDS: DIVALPROEX SPRINKLE 125 MG CAP.SPRINK PO SCH ×3 (08:41→17:48)
[2021-12-14] MEDS: risperiDONE 1 MG TABLET PO SCH ×2 (08:41→17:49)
[2021-12-14] MEDS: GLUCERNA SHAKE VANILLA 237 ML CAN PO SCH ×2 (08:42→17:49)
[2021-12-14] MEDS: INSULIN GLARGINE,HUM 300 UNITS/3 ML CARTRIDGE SQ SCH ×2 (08:43→22:06)
[2021-12-14] MEDS: INSULIN REGULAR, HUMAN 300 UNIT/3 ML VIAL SQ PRN ×2 (08:43→12:55)
[2021-12-14] MEDS: LORAZEPAM 0.5 MG TABLET PO PRN (14:03)
--- NOTE | 2021-12-14 14:38 | NUR ---
GPS: PT ANXIOUS AND AGITATED, SCREAMING OUT LOUD IN THE HALLWAY, GIVEN ATIVAN ORALLY AND TOLERATED WELL. DENIES ANY PAIN OR DISCOMFORT. PT IS CONFUSED, ATTENTION SEEKER.
[2021-12-14 16:14] VITALS: BP 121/51
--- NOTE | 2021-12-14 19:01 | NUR ---
PT SEEN PACING THE HALLWAY, CONFUSED. DISORIENTED TO PLACE. GETTING IN THE NURSES STATION. REDIRECTED DONE. PT NO AGITATION NOTED. PT NEEDS MORE REDIRECTION AND REORIENTATION. ASSISTED PT TO THE BATHROOM.
[2021-12-14 20:00] VITALS: BP 124/69
[2021-12-14] MEDS: INSULIN REGULAR, HUMAN 300 UNITS/3 ML VIAL SQ PRN (22:10)
[2021-12-14] MEDS: TRAZODONE 50 MG TABLET PO SCH (22:12)
[2021-12-14] MEDS: ATORVASTATIN 10 MG TABLET PO SCH (22:12)
[2021-12-14] MEDS: TEMAZEPAM 7.5 MG CAPSULE PO PRN (23:19)
[2021-12-15] MEDS: LORAZEPAM 0.5 MG TABLET PO PRN ×2 (00:07→06:57)
--- NOTE | 2021-12-15 05:46 | NUR ---
Received to care at start of shift confused, wandering into peers rooms with an unsteady gait. Assisted with food and fluids. Remained restless after routine meds. Was given PRN Ativan and Restoril. Continues to sleep. No distress noted.
[2021-12-15] MEDS: BLOOD SUGAR DIAGNOSTIC 1 EACH STRIP VI SCH ×5 (06:49→21:36)
[2021-12-15] MEDS: ACETAMINOPHEN 325 MG TABLET PO PRN (06:57)
[2021-12-15 07:30] VITALS: BP 117/59
[2021-12-15] MEDS: risperiDONE 1 MG TABLET PO SCH ×3 (09:20→20:53)
[2021-12-15] MEDS: GLUCERNA SHAKE VANILLA 237 ML CAN PO SCH ×2 (09:20→17:37)
[2021-12-15] MEDS: DIVALPROEX SPRINKLE 125 MG CAP.SPRINK PO SCH ×3 (09:20→17:36)
[2021-12-15] MEDS: INSULIN GLARGINE,HUM 300 UNITS/3 ML CARTRIDGE SQ SCH ×2 (09:21→21:00)
--- NOTE | 2021-12-15 11:41 | NUR ---
GPS: PT ON CHAIR AND COMPLIANT WITH CARE AND MEDICATIONS. NO ANXIETY NOTED AT THIS TIME. PT SEEN WANDERING AT HALLWAY EARLY AM SHIFT.
[2021-12-15 16:00] VITALS: BP 158/53
--- NOTE | 2021-12-15 18:58 | NUR ---
PT WAS JOSE CONFUSED, WANDERING AROUND THE HALLWAY, GOING IN TO OTHER PT'S ROOM AND. PT IS SOMEWHAT DIFFICULT TO BE REDIRECTED. ORIENTED TO PLACE AND EASILY FORGOT IT. NO AGITATION NOTED.
[2021-12-15] MEDS: INSULIN REGULAR, HUMAN 300 UNIT/3 ML VIAL SQ PRN (19:17)
[2021-12-15 20:00] VITALS: BP 120/41
[2021-12-15] MEDS: ATORVASTATIN 10 MG TABLET PO SCH (20:53)
--- NOTE | 2021-12-15 21:37 | NUR ---
patient blood sugar was 42 mg/dl. recheck after 15 minutes was 60 mg/dl. orange juice and turkey sandwich and pudding given. patient is awake and v/s wnl. charge nurse made aware. continue monitoring for safety.
--- NOTE | 2021-12-16 02:26 | NUR ---
blood sugar 265 mg/dl. patient is resting quietly.
--- NOTE | 2021-12-16 06:22 | NUR ---
GPS: Remain calm and cooperative with meds and care. patient is forgetful reorientation provided as needed. slept 8 hrs through the night.
[2021-12-16] MEDS: BLOOD SUGAR DIAGNOSTIC 1 EACH STRIP VI SCH ×4 (06:49→20:57)
[2021-12-16 07:53] LABS: HEMATOCRIT 33.3 % (31.2-41.9); MEAN CORPUSCULAR HEMOGLOBIN 33.4 uug (24.7-32.8); MEAN CORPUSCULAR VOLUME 94.8 fL (75.5-95.3); PLATELET COUNT (AUTO) 250 K/uL (179-408)
[2021-12-16 08:00] VITALS: BP 116/66
[2021-12-16 08:07] LABS: BILIRUBIN,TOTAL 0.4 mg/dL (0.2-1.0); CREATININE 0.8 mg/dL (0.6-1.3); POTASSIUM 4.1 mmol/L (3.5-5.1); TOTAL PROTEIN, SERUM 7.2 g/dL (6.4-8.2)
[2021-12-16] MEDS: risperiDONE 1 MG TABLET PO SCH ×3 (08:34→20:38)
[2021-12-16] MEDS: DIVALPROEX SPRINKLE 125 MG CAP.SPRINK PO SCH ×3 (08:34→19:14)
[2021-12-16] MEDS: GLUCERNA SHAKE VANILLA 237 ML CAN PO SCH ×2 (08:35→19:14)
[2021-12-16] MEDS: INSULIN GLARGINE,HUM 300 UNITS/3 ML CARTRIDGE SQ SCH ×2 (08:38→20:58)
[2021-12-16] MEDS: INSULIN REGULAR, HUMAN 300 UNIT/3 ML VIAL SQ PRN ×3 (08:40→19:19)
--- NOTE | 2021-12-16 11:13 | NUR ---
GPS: PT SEEN WANDERING AT THE HALLWAY, GOING IN AND OUT OF OTHER PT ROOM. PT RE-ORIENTED TO PLACE. PT TOLERATED WELL THE MEDICATION AND COMPLIANT TO CARE. RE-DIRECTABLE AT TIMES.
[2021-12-16 16:00] VITALS: BP 138/73
--- NOTE | 2021-12-16 19:39 | NUR ---
GPS: PT CONFUSED AND DISORIENTED TO PLACE. PT PACING THE HALLWAY GETTING INTO OTHERS ROOM. REDIRECTABLE MOST OF THE TIME. PT COMPLIANT WITH CARE AND MEDS. ACCUCHECK DONE. NO AGITATION NOTED.
[2021-12-16 20:13] VITALS: BP 141/79
[2021-12-16] MEDS: ATORVASTATIN 10 MG TABLET PO SCH (20:38)
[2021-12-16] MEDS: BENZTROPINE MESYLATE 0.5 MG TABLET PO SCH (20:38)
[2021-12-16] MEDS: TEMAZEPAM 7.5 MG CAPSULE PO PRN (21:49)
[2021-12-17 07:30] VITALS: BP 114/48
[2021-12-17] MEDS: BLOOD SUGAR DIAGNOSTIC 1 EACH STRIP VI SCH ×4 (08:01→20:55)
[2021-12-17] MEDS: INSULIN GLARGINE,HUM 300 UNITS/3 ML CARTRIDGE SQ SCH ×2 (08:04→21:29)
[2021-12-17] MEDS: DIVALPROEX SPRINKLE 125 MG CAP.SPRINK PO SCH ×3 (08:07→16:08)
[2021-12-17] MEDS: GLUCERNA SHAKE VANILLA 237 ML CAN PO SCH ×2 (08:08→16:10)
[2021-12-17] MEDS: risperiDONE 1 MG TABLET PO SCH ×3 (08:08→20:49)
[2021-12-17] MEDS: INSULIN REGULAR, HUMAN 300 UNIT/3 ML VIAL SQ PRN ×3 (08:19→16:05)
[2021-12-17 16:46] VITALS: BP 121/62
--- NOTE | 2021-12-17 17:13 | NUR ---
patient denied any suicidal thoughts, no acute distress noted, sitting up in chair, tolerated meals well. continue to monitor for safely checks per unit protocol
[2021-12-17] MEDS: TEMAZEPAM 7.5 MG CAPSULE PO PRN (20:49)
[2021-12-17] MEDS: BENZTROPINE MESYLATE 0.5 MG TABLET PO SCH (20:49)
[2021-12-17] MEDS: ATORVASTATIN 10 MG TABLET PO SCH (20:49)
[2021-12-17] MEDS: INSULIN REGULAR, HUMAN 300 UNITS/3 ML VIAL SQ PRN (21:02)
[2021-12-17 22:32] VITALS: BP 109/65
--- NOTE | 2021-12-17 22:41 | NUR ---
GPS: PT RECEIVED ON THE HALLWAY PACING WITH OTHER PT. WANDERING GOING INSIDE NURSES STATION. PT REDIRECTED AND ASSISTED TO BEDROOM. BLOOD SUGAR CHECKED AND WAS GIVEN INSULIN PER SLIDING SCALE AND ROUTINE LANTUS ON SCHEDULE. NO SIGN OF ANXIETY NOTED AT THIS TIME. COOPERATIVE WITH CARE AND COMPLIANT WITH MEDS.
[2021-12-18 07:30] VITALS: BP 144/81
[2021-12-18] MEDS: BLOOD SUGAR DIAGNOSTIC 1 EACH STRIP VI SCH ×4 (07:30→20:26)
[2021-12-18] MEDS: risperiDONE 1 MG TABLET PO SCH ×3 (08:38→20:10)
[2021-12-18] MEDS: GLUCERNA SHAKE VANILLA 237 ML CAN PO SCH ×2 (08:38→17:27)
[2021-12-18] MEDS: DIVALPROEX SPRINKLE 125 MG CAP.SPRINK PO SCH ×3 (08:38→17:27)
[2021-12-18] MEDS: INSULIN GLARGINE,HUM 300 UNITS/3 ML CARTRIDGE SQ SCH ×2 (08:40→20:27)
[2021-12-18] MEDS: INSULIN REGULAR, HUMAN 300 UNIT/3 ML VIAL SQ PRN ×2 (12:21→16:32)
[2021-12-18 16:00] VITALS: BP 118/60
[2021-12-18] MEDS: BENZTROPINE MESYLATE 0.5 MG TABLET PO SCH (20:10)
[2021-12-18] MEDS: ATORVASTATIN 10 MG TABLET PO SCH (20:10)
[2021-12-18 20:48] VITALS: BP 96/59
--- NOTE | 2021-12-18 23:37 | NUR ---
AAOx1 Confused and disoriented. Pacing back and forth from room to room and in the hallway. Meds given with encouragement. Accucheck 110. No bizarre behavior noted. Needs attended. Will monitor patient.
[2021-12-19] MEDS: BLOOD SUGAR DIAGNOSTIC 1 EACH STRIP VI SCH ×4 (06:36→20:48)
[2021-12-19 07:30] VITALS: BP 130/54
[2021-12-19] MEDS: GLUCERNA SHAKE VANILLA 237 ML CAN PO SCH ×2 (08:58→17:49)
[2021-12-19] MEDS: risperiDONE 1 MG TABLET PO SCH ×3 (09:00→20:42)
[2021-12-19] MEDS: DIVALPROEX SPRINKLE 125 MG CAP.SPRINK PO SCH ×3 (09:00→17:48)
[2021-12-19] MEDS: INSULIN GLARGINE,HUM 300 UNITS/3 ML CARTRIDGE SQ SCH ×2 (09:01→20:49)
--- NOTE | 2021-12-19 09:30 | NUR ---
PATIENT IS CONFUSED AND DISORIENTED PACING BACK AND FORTH REFUSED HER MEDICATIONS DESPITE ASSISTANCE AND ENCOURAGEMENT WILL CONTINUE TO REDIRECT AND PROVIDE SAFE AND THERAPEUTIC ENVIRONMENT AT ALL TIMES.
[2021-12-19] MEDS: INSULIN REGULAR, HUMAN 300 UNIT/3 ML VIAL SQ PRN (11:33)
[2021-12-19 16:00] VITALS: BP 113/71
--- NOTE | 2021-12-19 18:00 | NUR ---
ALERT TO SELF WITH CONFUSSION AND DISORIENTATION WALKING BACK AND FORTH VERY INTRUSIVE GOING INTO THE OTHER PATIENTS ROOMS AND AT TIME WILL LIE DOWN IN THE OTHER PATIENTS BED NEEDING FREQUENT REDIRECTION WAS ABLE TO GIVE HER THE DUE MEDICATIONS WITH ICE CREAM WILL CONTINUE TO OBSERVE.
[2021-12-19 20:00] VITALS: BP 161/49
[2021-12-19] MEDS: BENZTROPINE MESYLATE 0.5 MG TABLET PO SCH (20:42)
[2021-12-19] MEDS: TEMAZEPAM 7.5 MG CAPSULE PO PRN (20:42)
[2021-12-19] MEDS: ATORVASTATIN 10 MG TABLET PO SCH (20:42)
[2021-12-19] MEDS: INSULIN REGULAR, HUMAN 300 UNITS/3 ML VIAL SQ PRN (20:51)
[2021-12-20] MEDS: BLOOD SUGAR DIAGNOSTIC 1 EACH STRIP VI SCH ×4 (05:57→20:46)
--- NOTE | 2021-12-20 06:12 | NUR ---
Restoril not effective. Awake most of the time. Slept 15 minutes per report. Kept tossing in bed, but then heard snoring soundly during last rounds. Cooperative with care though. No complaint presented.
[2021-12-20 08:00] VITALS: BP 124/72
[2021-12-20] MEDS: GLUCERNA SHAKE VANILLA 237 ML CAN PO SCH ×2 (08:52→17:08)
[2021-12-20] MEDS: risperiDONE 1 MG TABLET PO SCH ×3 (08:52→20:46)
[2021-12-20] MEDS: DIVALPROEX SPRINKLE 125 MG CAP.SPRINK PO SCH ×3 (08:52→17:08)
[2021-12-20] MEDS: INSULIN GLARGINE,HUM 300 UNITS/3 ML CARTRIDGE SQ SCH ×2 (08:54→21:00)
[2021-12-20] MEDS: INSULIN REGULAR, HUMAN 300 UNIT/3 ML VIAL SQ PRN (12:28)
[2021-12-20 12:37] LABS: HEMATOCRIT 35.3 % (31.2-41.9); MEAN CORPUSCULAR VOLUME 95.3 fL (75.5-95.3); PLATELET COUNT (AUTO) 233 K/uL (179-408)
[2021-12-20 12:44] LABS: BILIRUBIN,TOTAL 0.4 mg/dL (0.2-1.0); CREATININE 0.9 mg/dL (0.6-1.3); MAGNESIUM 2.1 mg/dL (1.8-2.4); POTASSIUM 4.3 mmol/L (3.5-5.1); TOTAL PROTEIN, SERUM 7.8 g/dL (6.4-8.2)
--- NOTE | 2021-12-20 14:44 | NUR ---
Received patient walking in the hallway. A/O X 1 to self. Pt. is disorganized, confused, disoriented, intrusive, cooperative with care and compliant with medications. Pt. wanders between rooms, needs to be redirected most of the time. Blood glucose 242 at lunch, 6 units of regular insulin given pers sliding scale. Denies pain, no facial grimaces or frowning indicating pain. Denies SOB. Incontinent of bladder and bowel. Emotional support provided. Fall and safety precautions implemented.
[2021-12-20 16:53] VITALS: BP 112/65
[2021-12-20] MEDS: ATORVASTATIN 10 MG TABLET PO SCH (20:46)
[2021-12-20] MEDS: BENZTROPINE MESYLATE 0.5 MG TABLET PO SCH (20:46)
[2021-12-20] MEDS: INSULIN REGULAR, HUMAN 300 UNITS/3 ML VIAL SQ PRN (20:59)
[2021-12-20 21:19] VITALS: BP 122/66
--- NOTE | 2021-12-21 05:52 | NUR ---
Received patient wandering around the unit, patient A&0x1. Patient needs constant redirection as she tends to go in other patients room. Patient is confuse and non-redirectable d/t thought disorder. Patient compliant with medications. BS 225, sliding scale given. Patient slept most of the night with no issues noted. Safety strategies left in place.
[2021-12-21] MEDS: BLOOD SUGAR DIAGNOSTIC 1 EACH STRIP VI SCH ×2 (06:39→11:57)
[2021-12-21 08:00] VITALS: BP 108/47
[2021-12-21] MEDS: risperiDONE 1 MG TABLET PO SCH (08:44)
[2021-12-21] MEDS: DIVALPROEX SPRINKLE 125 MG CAP.SPRINK PO SCH ×2 (08:45→12:22)
[2021-12-21] MEDS: GLUCERNA SHAKE VANILLA 237 ML CAN PO SCH (09:15)
[2021-12-21] MEDS: INSULIN GLARGINE,HUM 300 UNITS/3 ML CARTRIDGE SQ SCH (09:16)
--- NOTE | 2021-12-21 09:31 | NUR ---
BERTRAM Discharge Note: Pt will be discharged to [facility] ([phone]) [address] [place] [address] via Ambulance transportation at 1PM. BERTRAM spoke with admin coordinator, Sheryl at the facility who states they are ready to accept the patient today. Pt is aware and agreeable with discharge plans. Pts friend, Mina ([phone]) is aware and agreeable with the discharge plan. Per Mina, pt does not have other contact information. Pt is alert and oriented x0, is unable to plan for self-care at this time; however, is willing to accept care at SNF. Pt denies any suicidal or homicidal ideation. Pt will follow-up at the facility with Psychiatrist, Dr. Gardner and Retail Brand Ambassador, Dr. Pacheco. Pt presents with calm mood and congruent affect. PHARMACY: [facility]: ([phone]) [address], [address], [place] [address].
--- NOTE | 2021-12-21 11:27 | NUR ---
GPS: PT ON BED HAVING BREAKFAST. DENIES PAIN OR DISCOMFORT. PT COMPLIANT WITH CARE AND MEDICATIONS. WANDERING AROUND THE HALLWAY AND GOES INTO OTHER ROOMS. PT NEEDS A LOT OR RE-ORIENTATION AND REDIRECTION. SPOKE WITH JAD AT [facility] AND MADE ENDORSEMENT PT WILL BE DISCHARGE TODAY AT 1300. ALL PAPERS SIGNED BY FIRE ALARM MECHANIC AND WITNESSED BY STAFF PT REFUSED TO SIGN. ALL BELONGINGS GIVEN. AMBULANCE WILL [facility] WORK[facility] PT AT 1300. MED RECON DONE.
[2021-12-21] MEDS: INSULIN REGULAR, HUMAN 300 UNIT/3 ML VIAL SQ PRN (11:58)
--- NOTE | 2021-12-21 14:00 | NUR ---
GPS: PT WAS DISCHARGE FROM THE UNIT. PICKED UP BY AMBULANCE WITH NO AGITATION. DENIES PAIN OR DISCOMFORT. COMPLIANT WITH CARE AND MED. ALL BELONGINGS GIVEN. PT REFUSED TO SIGN PAPERS. ENDORSED PT TO [facility] AND THE AMBULANCE STAFF.
== END 2021-12-21 14:00 | DRG 885 ==
LOC: ER 18:52 → GPS 12-07 01:45
PROVIDERS: ADMIT Psychiatry & Neurology Psychosomatic Medicine; ATTEND Internal Medicine
DX: F25.0 Schizoaffective disorder, bipolar type (principal); B95.0 Streptococcus, group A, as the cause of diseases classified elsewhere; N39.0 Urinary tract infection, site not specified; E44.0 Moderate protein-calorie malnutrition; F03.91 Unspecified dementia, unspecified severity, with behavioral disturbance; I10 Essential (primary) hypertension; E11.9 Type 2 diabetes mellitus without complications; Z79.4 Long term (current) use of insulin; Z20.822 Contact with and (suspected) exposure to COVID-19
CPT/HCPCS: 36415; 80164; 83735; 85025; 87077; 87086; 93005; 97161; A4663; C1758; G0480; J0696; J1815; J2060; J3486; J3490